=== PATIENT | female | born 2005 | race Two or more races ===

== ENCOUNTER 2025-08-19 11:47 | Emergency (ER) | payer MEDICAID, SELFPAY ==
--- NOTE | 2025-08-19 11:52 | EKG_ITS ---
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
[2025-08-19 12:02] VITALS: BP 111/73; PULSE 89; RESP 18; TEMP 36.8; O2SAT 99
--- NOTE | 2025-08-19 12:06 | XR_ITS ---
Examination: PA lateral chest 2 views TECHNIQUE: Upright PA lateral chest 2 views Date and time: August 19, 2025, 12:38 PM INDICATIONS: Chest pressure today. FINDINGS: Normal heart size Lungs are clear. Right ventricular peritoneal shunt tube The osseous structures are intact IMPRESSION: No active disease
--- NOTE | 2025-08-19 12:07 | PD.EDRME ---
Rapid Medical Screening Exam RME Arrival date/time: 08/19/25 11:47 20-year-old female with a history of leukemia on chemotherapy drug presents to the emergency room with a chief complaint of shortness of breath and 4 out of 10 sternal chest pain x 2 days I have greeted and performed a focused initial assessment of this patient. A comprehensive ED assessment and evaluation of the patient, analysis of all test results, and completion of the medical decision making process will be conducted by additional ED providers. Chief Complaint: Chest Pain Time Seen by Provider: 08/19/25 11:55 Vital signs: Vital Signs Temperature 98.3 F 08/19/25 12:02 Pulse Rate 89 08/19/25 12:02 Respiratory Rate 18 08/19/25 12:02 Blood Pressure 111/73 08/19/25 12:02 Pulse Oximetry (%) 99 08/19/25 12:02 Oxygen Delivery Method Room Air 08/19/25 12:02 Vital signs reviewed by provider: Yes
[2025-08-19 12:46] LABS: Basophils # (Auto) 0.0 Thou/mm3 (0.0-0.2); Basophils % (Auto) 0 % (0-2.5); Eosinophils # (Auto) 0.1 Thou/mm3 (0.0-0.5); Eosinophils % (Auto) 2 % (0-10); Hematocrit 33.6 % (36.0-46.0); Hemoglobin 10.3 g/dL (12.0-16.0); Immature Granulocytes Auto 0.01 Thou/mm3 (0.00-0.00); Lymphocytes # (Auto) 2.0 Thou/mm3 (1.0-4.8); Lymphocytes % (Auto) 59 % (10-50); Mean Corpuscular HGB Conc 30.7 g/dl (31.0-37.0); Mean Corpuscular Hemoglobin 26.1 pg (25.0-35.0); Mean Corpuscular Volume 85 fL (80-100); Monocytes # (Auto) 0.3 Thou/mm3 (0.0-0.8); Monocytes % (Auto) 10 % (0-12); Neutrophils # (Auto) 1.0 Thou/mm3 (1.8-7.7); Neutrophils % (Auto) 29 % (37-80); Nucleated Red Blood Cell # 0.00 Thou/mm3 (0.00-0.00); Nucleated Red Blood Cell % 0 /100 WBC (0); Platelet Count 150 Thou/mm3 (140-440); RDW Standard Deviation 51.8 fL (36.4-46.3); Red Blood Count 3.94 Miln/mm3 (4.00-5.20); White Blood Count 3.4 Thou/mm3 (3.6-11.0)
[2025-08-19 12:49] LABS: Collection Type, Urine Clean Catch
[2025-08-19 13:02] LABS: B-Type Natriuretic Peptide 71 pg/mL (0-100)
[2025-08-19 13:04] LABS: Bilirubin,Urine Negative (Negative); Blood,Urine Negative (Negative); Clarity,Urine Clear (Clear/Hazy); Color,Urine Lt-Yellow (Lt Yel-Yel); Culture Indicated,Urine Not Indicated; Glucose, Urine Negative (Negative); Ketones,Urine Negative (Negative); Leukocyte Esterase,Urine Negative (Negative); Nitrite,Urine Negative (Negative); PH,Urine 7.0 (5.0-7.0); Protein,Urine Negative (Neg - Trace); RBC,Urine 1 /hpf (0-3); Specific Gravity,Urine 1.016 (1.001-1.035); Squamous Epithelial Cell,Urine 1 /hpf (0-5); Urobilinogen,Urine Negative mg/dL (0.0-1.0); WBC,Urine < 1 /hpf (0-5)
[2025-08-19 13:04] LABS: Alanine Aminotransferase 40 U/L (10-49); Albumin, Serum 4.7 gm/dL (3.5-5.0); Albumin/Globulin Ratio 1.6 (1.2-2.2); Alkaline Phosphatase 66 U/L (46-116); Anion Gap 7 (7-16); Aspartate Amino Transferase 35 U/L (0-34); BUN/Creatinine Ratio 12 Ratio (12-20); Bilirubin,Total 0.2 mg/dL (0.3-1.2); Blood Urea Nitrogen 7 mg/dL (9-23); Calcium 9.6 mg/dL (8.3-10.6); Calcium (Corrected) 9.6 mg/dL (8.5-10.1); Carbon Dioxide 24.8 mMol/L (20.0-31.0); Chloride 106 mMol/L (98-107); Creatinine (Component) 0.6 mg/dL (0.6-1.3); Globulin 2.9 gm/dL (2.3-3.5); Glucose 91 mg/dL (74-106); INR 1.0 (0.9-1.3); Magnesium 1.7 mg/dL (1.6-2.6); Osmolality,Calculated 273 (275-295); Partial Thromboplastin Time 30.5 Seconds (22.0-36.0); Potassium 3.9 mMol/L (3.4-5.1); Prothrombin Time 10.7 Seconds (9.0-12.2); Sodium 138 mMol/L (136-145); Total Protein 7.6 gm/dL (5.7-8.2); Troponin I < 0.002 ng/mL (0.0-0.045); eGFR > 60 See Note
[2025-08-19 14:56] LABS: D-Dimer 306 ng/mL (<600)
--- NOTE | 2025-08-19 15:00 | PD.EDCHEST ---
ED Chest Pain RME/HPI General Chief Complaint: Chest Pain Stated Complaint: CHEST PAIN, SOB; SENT BY PCP Time Seen by Provider: 08/19/25 11:55 Source: patient Arrival date/time: 08/19/25 11:47 This is a case of 21-year-old female with history of leukemia on oral chemotherapy came in in the emergency room due to chest pain sternal in location sharp in character associated with mild shortness of breath no palpitation for 2 days persistence of the symptoms thus patient decided to sought consult here in the emergency room patient also have history of anemia and scheduled to have iron transfusion this week Limitations: no limitations RME / HPI RME / HPI narrative: 08/19/25 11:47 20-year-old female with a history of leukemia on chemotherapy drug presents to the emergency room with a chief complaint of shortness of breath and 4 out of 10 sternal chest pain x 2 days I have greeted and performed a focused initial assessment of this patient. A comprehensive ED assessment and evaluation of the patient, analysis of all test results, and completion of the medical decision making process will be conducted by additional ED providers. Related Data Home Medications ?Medication ?Instructions ?Recorded ?Confirmed vits no.130-ferrous fum 1 tab PO QDAY 03/13/24 03/28/24 27 mg iron-folic acid 800 mcg tablet ( Vitamin) Allergies Allergy/AdvReac Type Severity Reaction Status Date / Time No Known Allergies Allergy Verified 08/19/25 11:50 Review of Systems Review of Systems Systems Reviewed: All systems reviewed, normal except as documented Constitutional Constitutional: Reports system reviewed and no additional complaints, except as documented and Reports as per HPI Cardiovascular Cardiovascular: Reports system reviewed and no additional complaints, except as documented and Reports as per HPI Respiratory Respiratory: Reports system reviewed and no additional complaints, except as documented and Reports as per HPI Gastrointestinal Gastrointestinal: Reports system reviewed and no additional complaints, except as documented and Reports as per HPI Genitourinary Genitourinary: Reports system reviewed and no additional complaints, except as documented and Reports as per HPI Musculoskeletal Musculoskeletal: Reports system reviewed and no additional complaints, except as documented and Reports as per HPI Neurologic Neurologic: Reports system reviewed and no additional complaints, except as documented and Reports as per HPI Past Medical History Past Medical History NEUROLOGIC: Positive Neurological Disorders and Brain Tumor (Shunt in place) CARDIAC: Negative Cardiac Disorders or Congestive Heart Failure RESPIRATORY: Negative Chronic Obstructive Pulmonary Disease (COPD) GASTROINTESTINAL: Negative Gastrointestinal Disorders or Hepatitis GENITOURINARY: Negative Genitourinary Disorders or Renal Disease REPRODUCTIVE: Negative Pelvic Inflammatory Disease MUSCULOSKELETAL: Negative Musculoskeletal Disorders ENDOCRINE: Negative Endocrine Disorders, Diabetes Mellitus Type 1 or Diabetes Mellitus Type 2 HEMATOLOGIC: Negative Blood Disorders OTHER HISTORY: Positive Hospitalization (for brain surgery); Negative Autoimmune Disease, Down Syndrome, Developmental Delay, Shingles, Falls, Blood Transfusions, Blood Transfusion Reaction, Anesthesia Reactions, Organ Transplant, Chemotherapy, Radiation Therapy, Hyperbaric Therapy, MRSA, VRSA, Vancomycin-Resistant Enterococci, Human Immunodeficiency Virus (HIV), Chicken Pox, Measles, Mumps, Rubella (Persian Measles), Pertussis, Clostridium Difficile or Cancer Family History FAMILY HISTORY: Positive Family Cardiac Disorders (maternal grandmother, unknown) and Family Cancer (maternal aunt, breast cancer); Negative Family Psychiatric Problems, Family Respiratory Disorders, Family Gastrointestinal Problems, Family Surgery or Family Anesthesia Reaction Surgical History SURGICAL: Positive Neurologic Surgery and Brain Shunt; Negative Section or Organ Transplant Social History SMOKING STATUS: Never smoker SECOND HAND EXPOSURE: No ED Exam General Limitations: Present no limitations General appearance: Present alert, in no apparent distress and other (Patient is awake alert oriented not in distress nontoxic looking well-hydrated well-nourished) Head Head exam: Present atraumatic, normocephalic and normal inspection Eye Eye exam: Present normal appearance, PERRL and EOMI ENT ENT exam: Present normal exam, normal oropharynx and mucous membranes moist Neck Neck exam: Present normal inspection, full ROM and trachea midline; Absent tenderness, meningismus, lymphadenopathy or thyromegaly Chest Chest inspection: Present normal inspection and symmetric chest wall rise; Absent tenderness Respiratory Respiratory exam: Present normal lung sounds bilaterally; Absent respiratory distress, wheezes, stridor, accessory muscle use or prolonged expiratory phase Cardiovascular Cardiovascular exam: Present regular rate, normal rhythm and normal heart sounds; Absent bradycardia, tachycardia, irregular rhythm, systolic murmur, diastolic murmur, rubs, gallop, clicks or JVD Abdominal Exam Abdominal exam: Present soft and normal bowel sounds; Absent distention, tenderness, guarding, rebound, rigidity, diminished bowel sounds, hyperactive bowel sounds, hypoactive bowel sounds, organomegaly or trauma Extremities Exam Extremities exam: Present normal inspection and full ROM Back Exam Back exam: Present normal inspection and full ROM Neurological Exam Neurological exam: Present alert, oriented X3, CN II-XII intact, normal gait and reflexes normal; Absent motor sensory deficit Psychiatric Psychiatric exam: Present normal affect and normal mood Skin Skin exam: Present warm, dry, intact and normal color Course Quality Measures none Orders Category Date Time Status Bedside COVID-19 Antigen Test NOW Care 08/19/25 13:59 Active Bedside Influenza A&B Antigen Test NOW Care 08/19/25 14:00 Active EKG (ED ONLY) *Do not use* NOW Care 08/19/25 11:52 Completed EKG (ED Only) Stat Exams 08/19/25 11:52 Draft XR chest 2V Stat Exams 08/19/25 12:06 Completed B-Type Natriuretic Peptide Stat Lab 08/19/25 12:35 Completed CBC Stat Lab 08/19/25 12:35 Completed Comprehensive Metabolic Panel Stat Lab 08/19/25 12:35 Completed D-Dimer Stat Lab 08/19/25 12:35 Completed Magnesium Stat Lab 08/19/25 12:35 Completed Partial Thromboplastin Time Stat Lab 08/19/25 12:35 Completed Prothrombin Time with INR Stat Lab 08/19/25 12:35 Completed Troponin I Stat Lab 08/19/25 12:35 Completed Urinalysis, C/S if Indicated Stat Lab 08/19/25 12:30 Completed Vital Signs Vital signs: Vital Signs Temperature 98.3 F 08/19/25 12:02 Pulse Rate 89 08/19/25 12:02 Respiratory Rate 18 08/19/25 12:02 Blood Pressure 111/73 08/19/25 12:02 Pulse Oximetry (%) 99 08/19/25 12:02 Oxygen Delivery Method Room Air 08/19/25 12:02 Patient is afebrile not tachycardic not tachypneic BP stable not hypoxic oxygen saturation is 99% in room air Chest Pain MDM Narrative MDM Narrative:: This is a case of 21-year-old female with history of leukemia on oral chemotherapy came in in the emergency room due to chest pain sternal in location sharp in character associated with mild shortness of breath no palpitation for 2 days persistence of the symptoms thus patient decided to sought consult here in the emergency room patient also have history of anemia and scheduled to have iron transfusion this week physical examination patient is awake alert oriented not in distress nontoxic looking well-hydrated well-nourished vital signs stable BP stable not tachycardic not tachypneic not hypoxic and afebrile lungs sound is clear no crackles no rales no retraction no stridor heart normal rate regular rhythm no murmur patient have excellent skin turgor patient is not pale blood test showed leukopenia with WBC of 3.4 anemia with hemoglobin of 10.4 platelet is normal no electrolyte imbalance kidney and liver function is normal magnesium is normal patient troponin and BNP is normal EKG is sinus rhythm chest x-ray is normal patient is negative for COVID patient D-dimer is also normal at the time of exam I do not think patient chest pain is due to myocardial infarction or pulmonary embolism or pneumonia patient shortness of breath and chest pain is possibly due to anemia patient will have iron transfusion this week and I told the patient to call her software licensing specialist for further evaluation and treatment of leukemia and anemia and further evaluation of leukopenia at the time of exam patient is chest pain-free and no shortness of breath patient was advised for any recurrence persistent worsening symptoms or any emergent concern she will return in the emergency room immediately or call 911 patient advised to wear masks to prevent infection because of leukopenia and follow-up with software licensing specialist patient will continue her oral chemotherapy Patient was discharged with comfortable condition walking with stable gait. Patient verbalized no further complains explained diagnosis and answered patient question. Patient is comfortable with the proposed management plan including the need to follow up with his/her primary care physician and any specialist if applicable Discussed patient for any urgent condition or worsening sx, He/She needed to go to emergency room immediately or call 911. Patient acknowledge the responsibility to follow up as instructed and to monitor her/his symptoms. For any persistence of the symptoms for more than 3-5 days return precaution advised. Discussed the result of the test and was given printed discharge instruction Patient data External records reviewed:: [facility] previous records Clinical information provided by:: patient Social determinants that could affect healthcare access:: none Patient has the following chronic illnesses:: None How is presenting disease/condition affected by chronic disease/condition?: no chronic disease Evaluation data The following diagnostics were reviewed and interpreted by me:: lab results, radiology exam(s) and EKG tracing(s) Lab and/or radiology exams considered but not ordered:: Reviewed Interpretation Summary: Reviewed Medications / Prescriptions Medications or Prescriptions considered but not ordered:: Given Medication administrations:: Given Consultations Consultation(s) initiated? (list below): No Diagnosis Chest Pain Differential Diagnosis: atypical chest pain, costochondritis and chest pain Most likely diagnosis given after review of the tests above:: Chest pain of unknown etiology Admission Indicated Admission indicated?: not indicated Explain why admission is indicated or not indicated:: Not indicated Admission Request Was there a request for admission?: No Admission Attestation Admission request attestation: Not indicated Disposition Plan Disposition Plan: Discharge Discharge Attestation Discharge Attestation: The patient and all family members were given an opportunity to ask questions and understood the discharge instructions. Discharge instructions specifically effects, indications for sooner follow up or return to the emergency department, and the expected course of current diagnosis. Patient condition: Stable Discharge Plan Plan Patient Disposition: HOME (Self Care) Patient condition on transfer: Stable Prescriptions/Referrals Prescriptions/Med Rec: No Action Vitamin 27 mg iron- 800 mcg tablet 1 tab PO QDAY Patient Comments: TAKE 1 TABLET BY MOUTH EVERY DAY Referrals: No Primary/Family,Physician [Primary Care Provider] - In 1 week Problem List Clinical Impression: Chest pain of unknown etiology, Dyspnea, Leukopenia, Anemia Patient/Caregiver Discharge Instructions Education Materials: Anemia, What Is Leukemia?, ED Chest Pain, Uncertain Cause, ED Shortness of Breath (Dyspnea) Additional Instructions: Follow-up with your primary care physician in 2 days for reevaluation continue to have iron transfusion as scheduled for this week worsening symptoms recurrent persistent or any emergent concern call 911 or go to the nearest emergency room call your software licensing specialist regarding your leukopenia and anemia and for follow-up for your leukemia take your medication as directed keep hydrated follow-up with your primary care physician to be referred to internet marketing executive for further evaluation and treatment of chest pain for possible echocardiogram stress test Holter monitor Print Language: Lao Stand Alone Forms: Marlene Award Info., Patient Portal Info Letter PA/TRIAGE REGISTERED NURSE Supervising Physician PA/TRIAGE REGISTERED NURSE Supervising Physician: Dr. Chin
== END 2025-08-19 15:20 | disposition home or self-care (01) ==
PROVIDERS: Nurse Practitioner Family; Emergency Provider Family Medicine
DX: D64.9 Anemia, unspecified (principal); D72.819 Decreased white blood cell count, unspecified; R06.00 Dyspnea, unspecified; R07.9 Chest pain, unspecified
CPT/HCPCS: 36415; 71046; 80053; 81001; 83735; 83880; 84484; 85025; 85379; 85610; 85730; 93005; 99283

== ENCOUNTER 2025-10-22 06:20 | Day surgery (SDC) | payer MEDICAID, SELFPAY ==
--- NOTE | 2025-10-19 09:38 | ESHP_ITS ---
RE: DOREEN MONIQUE : 2005 DATE OF ADMISSION: 10/22/2025 This is a 20-year-old 1, para 1 who has an endometrial polyp and has abnormal uterine bleeding who presents for removal. ALLERGIES: NO KNOWN DRUG ALLERGIES. MEDICATIONS: Sprycel 100 mg tablet 1 p.o. daily. PAST MEDICAL HISTORY: Myeloproliferative disorder, brain meningioma partially resected 06/2020 with shunt placement 01/2023, endometriosis, ventricular peritoneal shunt. SOCIAL HISTORY: She denies any alcohol, drug use, or smoking. FAMILY HISTORY: Breast cancer. OB HISTORY: In 2023, a 40-week normal vaginal delivery, of a 9-fgqjl-3-ounce male, no complications. PAST SURGICAL HISTORY: Denies. REVIEW OF SYSTEMS: She denies any chest pain, palpitations, cough, fever, shortness of breath, or lower extremity pain. She denies any flank pain. PHYSICAL EXAMINATION: VITAL SIGNS: Blood pressure 110/70, heart rate 88, respiration 18, temperature 98.6. HEENT: Oropharynx and sclerae are clear. LUNGS: Clear to auscultation bilaterally. HEART: Regular rate and rhythm. ABDOMEN: Nontender. EXTREMITIES: Nontender. SKIN: No gross rashes or lesions. NEUROLOGIC: No focal deficit. ASSESSMENT AND PLAN: Abnormal uterine bleeding, endometrial polyp. PLAN: Hysteroscopy, MyoSure removal of endometrial polyp, and fractional dilatation and curettage. Informed consent was obtained. Patient made aware of the risk, complications, alternative and benefits of the proposed procedure, she agrees. She is aware of the risk of injury to bowel, bladder, adjacent organs, pulmonary embolism, deep vein thrombosis, pelvic infection, reoperation to repair injury to internal organs, anesthesia complications, the possibility that a laparotomy needs to be performed to repair organs or control bleeding, and the possibility the procedure is not able to be completed due to severe adhesions or technical difficulties. She verbalized understanding and agrees to proceed with the procedure with an understanding of the risks and complications. DT: 09:21:05 TT: 09:37:00 Ref: [id number] - TID: [id number]
[2025-10-21 09:06] VITALS: BMI 35.8
[2025-10-21 10:02] LABS: Basophils # (Auto) 0.0 Thou/mm3 (0.0-0.2); Basophils % (Auto) 1 % (0-2.5); Eosinophils # (Auto) 0.0 Thou/mm3 (0.0-0.5); Eosinophils % (Auto) 1 % (0-10); Hematocrit 38.4 % (36.0-46.0); Hemoglobin 11.9 g/dL (12.0-16.0); Immature Granulocytes Auto 0.00 Thou/mm3 (0.00-0.00); Lymphocytes # (Auto) 2.5 Thou/mm3 (1.0-4.8); Lymphocytes % (Auto) 64 % (10-50); Mean Corpuscular HGB Conc 31.0 g/dl (31.0-37.0); Mean Corpuscular Hemoglobin 26.7 pg (25.0-35.0); Mean Corpuscular Volume 86 fL (80-100); Monocytes # (Auto) 0.3 Thou/mm3 (0.0-0.8); Monocytes % (Auto) 7 % (0-12); Neutrophils # (Auto) 1.1 Thou/mm3 (1.8-7.7); Neutrophils % (Auto) 28 % (37-80); Nucleated Red Blood Cell # 0.00 Thou/mm3 (0.00-0.00); Nucleated Red Blood Cell % 0 /100 WBC (0); Platelet Count 212 Thou/mm3 (140-440); RDW Standard Deviation 50.0 fL (36.4-46.3); Red Blood Count 4.46 Miln/mm3 (4.00-5.20); White Blood Count 3.9 Thou/mm3 (3.6-11.0)
[2025-10-21 10:11] LABS: INR 1.0 (0.9-1.3); Partial Thromboplastin Time 32.3 Seconds (22.0-36.0); Prothrombin Time 10.5 Seconds (9.0-12.2)
[2025-10-21 10:16] LABS: Alanine Aminotransferase 24 U/L (10-49); Albumin, Serum 4.6 gm/dL (3.5-5.0); Albumin/Globulin Ratio 1.6 (1.2-2.2); Alkaline Phosphatase 49 U/L (46-116); Anion Gap 9 (7-16); Aspartate Amino Transferase 22 U/L (0-34); BUN/Creatinine Ratio 20 Ratio (12-20); Beta HCG,Quantitative < 1 mIU/mL (<5.0); Bilirubin,Total 0.2 mg/dL (0.3-1.2); Blood Urea Nitrogen 10 mg/dL (9-23); Calcium 9.3 mg/dL (8.3-10.6); Calcium (Corrected) 9.3 mg/dL (8.5-10.1); Carbon Dioxide 25.3 mMol/L (20.0-31.0); Chloride 106 mMol/L (98-107); Creatinine (Component) 0.5 mg/dL (0.6-1.3); Estimated Creatinine Clearance 182.8 mL/min (>60); Globulin 2.9 gm/dL (2.3-3.5); Glucose 89 mg/dL (74-106); Osmolality,Calculated 277 (275-295); Potassium 4.1 mMol/L (3.4-5.1); Sodium 140 mMol/L (136-145); Total Protein 7.5 gm/dL (5.7-8.2); eGFR > 60 See Note
[2025-10-22] VITALS (9 sets, daily range): BP systolic 92–119; BP diastolic 61–79; PULSE 78–113; RESP 14–23; TEMP 36.3–36.6; O2SAT 97–100; BMI 35.9
--- NOTE | 2025-10-22 09:31 | SUR.PHASEI ---
Pt. arrived to recovery, eyes closed, responds to verbal commands, VSS, no c/o pain or nausea at this time, lung sounds clear, equal expansion haily., pt. receiving 6 liters 02 via oxymask, sondra-pad in place, no active bleeding noted. Report received from Syed JOHNSON and Ambrosio ROMERO.
--- NOTE | 2025-10-22 09:33 | ESOP_ITS ---
Operative Note - CONSUMER EDUCATION SPECIALIST Procedure Date of procedure: 10/22/25 Procedure Performed: Hysteroscopy, Myosure removal of endometrial polyp Indication: Endometrial Polyp Abnormal uterine Bleeding. Pre-Op diagnosis: Endometrial Polyp Abnormal uterine Bleeding. Post-Op diagnosis: Endometrial Polyp Abnormal uterine Bleeding. Anesthesia type: General Procedure description: After proper informed consent was obtained and the patient made aware of the risk complications alternatives and benefits of the proposed procedure she was taken to the operating room where she underwent induction of general anesthesia.? She was placed in the dorsal lithotomy position and prepped and draped the usual sterile fashion.? A timeout was performed.? A bivalve speculum was inserted.? A single-tooth tenaculum was used to grasp the anterior lip of the cervix.? The uterine cavity was sounded to 8.0 cm.?The cervix was dilated to accommodate the 5.5 mm Omni hysteroscope.? Using the Aquilex system and normal saline as the distending media the hysteroscopy was performed and a 1 x 2.5 cm endometrial polyp was seen on the posterior uterine cavity.? Using the MyoSure Reach device the polypectomy was performed and specimen sent to pathology. The fluid deficit at the end of the MyoSure procedure was 50 cc.? ? Specimen: other (endometrial polyp) Estimated blood loss (ml): 5 Findings: Endometrial polyp broad based posterior mid uterine segment 1 x 2.5 cm. No other irregularities or distortions of the uterine or endocervix. Grossly normal appearing cervix and vagina. Complications: none Surgical staff Chris Das Surgeon Operation Date: 10/22/25 08:45 <No data on this case meets the specified criteria> Diagnosis Problem List Completed Was Problem List Reviewed/Reconciled?: Yes
--- NOTE | 2025-10-22 09:44 | SUR.PHASEI ---
Pt. AAOx3, no c/o pain or nausea at this time, sitting up tolerating ice chips.
--- NOTE | 2025-10-22 10:01 | SUR.PHASEII ---
0948: Assumed care. Pt awake, alert. Resp even, unlabored. VS stable. No vaginal bleed. Denies pain. Pt tolerating po ice chips with no difficulty swallowing and no n/v.
--- NOTE | 2025-10-22 10:56 | SUR.PHASEII ---
1043: Pt fully awake, oriented x3. VS stable. Denies pain. Scant vaginal bleeding. Pt dressed. Assisted to transport chair. Ambulation steady. Pt and partner stated understanding of discharge instructions. Pt discharged from [facility] in stable condition.
== END 2025-10-22 10:43 | disposition home or self-care (01) ==
PROVIDERS: Referring Provider Specialist; Visit Provider Specialist
PROC: 0UJD8ZZ Inspection of Uterus and Cervix, Via Natural or Artificial Opening Endoscopic (ICD-10-PCS; CPT 58555; principal; 2025-10-22 08:30)
DX: N84.0 Polyp of corpus uteri (principal)
CPT/HCPCS: 58558; 36415; 80053; 84702; 85025; 85610; 85730; 86850; 86900; 86901; A4217; A4649; J0131; J0690; J1885; J2250; J2704; J3010; J3490